=== PATIENT | male | born 1970 | race Caucasian/White ===

== ENCOUNTER 2024-01-18 08:38 | Outpatient (CLI) | payer OTHER, SELFPAY ==
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
--- NOTE | ~2024-01-18 | XR_ITS ---
Right Shoulder Technique: AP and scapular Y views were obtained. Clinical History: Pain Findings: No acute fracture or dislocation is seen. Osseous alignment is anatomic. Probable old, heal ed fracture deformity of the right clavicle. The glenohumeral and acromioclavicular joint spaces are preserved. Soft tissues are unremarkable. Impression: No acute abnormality. Probable old, healed fracture deformity of the right clavicle. Reviewed, dictated and finalized at location . Impression: No acute abnormality. Probable old, healed fracture deformity of the right clavicle.
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
== END 2024-01-18 08:39 | disposition home or self-care (01) ==
PROVIDERS: Visit Provider Orthopaedic Surgery
DX: M89.8X1 Other specified disorders of bone, shoulder (principal); S43.52XA Sprain of left acromioclavicular joint, initial encounter; X58.XXXA Exposure to other specified factors, initial encounter
CPT/HCPCS: 73000; 73030